=== PATIENT | male | born 1950 | race Caucasian/White ===

== ENCOUNTER 2018-04-06 12:04 | Inpatient (IN) | payer OTHER, MEDICARE ==
[~2018-04-06] VITALS: Ht 172.7 cm; Wt 112.6 kg
--- NOTE | ~2018-04-06 | EKG ---
[employer], [place] ELECTROCARDIOGRAM REPORT NAME: DARIELA KUHN UNIT #: [id number] ROOM: 404 DOCTOR: ALBINO DRAFT REPORT BIRTHDATE: [birth year] [facility] Test Date: 2018-04-06 Test Time: 12:30:41 Pat Name: DARIELA KUHN Department: Room: 404 Gender: M [employer] Processor: IRMA RANGELB: 1950 Requested By: KAYLEIGH COOLEY Order Number: [id number] Reading MD: Michael Haddad MD Measurements Intervals [place] Rate: 98 P: 38 TX: 170 QRS: 22 QRSD: 92 T: -1 QT: 355 QTc: 454 Interpretive Statements Sinus rhythm Consider left atrial enlargement Inferior SC, old Borderline T abnormalities, inferior leads Electronically Signed On 04-06-2018 18:45:44 PDT by Michael Haddad MD CM:EKGRPT:ELECTROCARDIOGRAM REPORT 1230 [id number] KAYLEIGH ESCOTO DRAFT REPORT KAYLEIGH COOLEY DO
--- NOTE | ~2018-04-06 | O ---
[place], [place] OPERATIVE NOTE NAME: DARIELA KUHN UNIT #: [id number] ROOM: 404 DOCTOR: JAQUAN TABARES MD BIRTHDATE: [birth year] DOS: 04/07/2018 PREOPERATIVE DIAGNOSIS: Acute cholecystitis. POSTOPERATIVE DIAGNOSIS: Acute cholecystitis. PROCEDURE: Laparoscopic partial cholecystectomy. SURGEON: Jaquan Tabares MD LOGISTICS SYSTEM ENGINEER: JULIETTE. ANESTHESIA: General with endotracheal intubation. INDICATIONS: This is a 67-year-old gentleman who was admitted with right upper quadrant and epigastric abdominal pain for approximately a week. Further workup showed acute cholecystitis as the cause of the pain, it was decided to take the patient to the operating room for the above-mentioned procedure. The procedure and its complications were explained to the patient in detail preoperatively. Complications that were discussed included but were not limited to bleeding, infection, hematoma/seroma/abscess formation, biloma formation, inadvertent injury to the common bile duct, incisional hernia formation and prolonged postoperative pain. He agreed to proceed. DESCRIPTION OF PROCEDURE: After identifying the patient, the patient was brought to the operating suite and laid in the supine position. After induction of general anesthesia, timeout procedure was called and the parts were then painted and draped in the usual sterile fashion. An incision was made below the umbilicus in a transverse fashion. The skin and the subcutaneous tissue were incised in the line of the incision. The fascia was incised and 2 stay sutures with 0 Vicryl were taken on either side and the peritoneum was opened. A 12 mm Juliette port was introduced into the peritoneal cavity and a pneumoperitoneum was created. Under direct vision, an epigastric incision of 10 mm and two 5 mm incisions were made in the right upper quadrant and appropriate size ports were introduced. The gallbladder was found to be acutely inflamed and edematous as well as pretty distended and therefore in order to better grasp the gallbladder, approximately 30 mL of clear fluid was aspirated from the gallbladder. The gallbladder was then retracted superiorly and laterally. Multiple adhesions, which were chronic and acute, were taken down with the help of blunt dissection. Despite multiple attempts, the base of the gallbladder and the cystic duct and the cystic artery itself were not visualized appropriately and therefore the top-down technique was utilized by incising on the peritoneum overlying the gallbladder and taking the gallbladder down from the fundus of the gallbladder down to its base. Because of the extreme edema and inflammation, the gallbladder itself was difficult to remove from the bed of the gallbladder and the gallbladder itself was entered inadvertently in order to minimize bleeding complications associated with removing the gallbladder from the gallbladder bed in the inflamed situation, the posterior wall of the gallbladder was left in situ and the anterior wall of the gallbladder was dissected away with the help of blunt and sharp dissection and by using electrocautery away from the [place], [place] OPERATIVE NOTE NAME: DARIELA KUHN UNIT #: [id number] ROOM: [facility] DOCTOR: JAQUAN TABARES MD BIRTHDATE: [birth year] gallbladder bed. At approximately the fundus area of the gallbladder, the gallbladder wall was excised and a stone that was encountered was also removed by inserting the gallbladder, excised wall and the stone into an EndoCatch bag and removing from the peritoneal cavity and sending the specimen for histopathological diagnosis. Hemostasis was achieved in the posterior wall of the gallbladder and the exposed gallbladder wall and saline was used for irrigation. For additional hemostasis, a Surgicel patch was placed and through one of the lateral incisions, a 10-Yoruba round Dale-Bosch drain was inserted and was placed in the gallbladder bed and in the region of the lateral abdominal wall and the right lobe of the liver. The port was then removed and the drain was then fixed to the overlying skin with the help of 3-0 nylon. The epigastric and the other right-sided abdominal wall port were removed under direct vision and there was no bleeding seen. The umbilical port was also removed and the 2 stay sutures were tied together and an additional stitch was taken with the help of 0 Vicryl in order to close the fascia. Local anesthesia was infiltrated in all the four incisions and the three incisions were then approximated with the help of 4-0 Vicryl in a subcuticular running fashion. Dressing was placed. The patient tolerated the procedure well and was extubated uneventfully and brought back to the recovery room in a stable fashion. There were no complications. Dr. Jaquan Tabares, the attending surgeon, was present throughout the operating case. Jaquan Tabares MD CM:OPRECORD:OPERATIVE NOTE 1327 [id number] JAQUAN TABARES MD 04/07/18 1433 interface
[2018-04-06 12:04] VITALS: BP 156/88
[2018-04-06 12:38] LABS: HEMATOCRIT 44.9 % (42.0-52.0); HEMOGLOBIN 15.7 g/dl (14.0-18.0); MEAN CELL VOLUME 87.9 fl (80.0-94.0); MEAN CORPUSCULAR HGB 30.7 pg (27.0-31.0); PLATELET COUNT AUTOMATED 202 10*3/uL (130-400); RED BLOOD COUNT 5.11 10*6/uL (4.50-5.90); RED CELL DISTRI WIDTH 12.2 % (0-14.5); WHITE BLOOD COUNT 16.9 10*3/uL (4.8-10.8)
[2018-04-06 12:40] LABS: BILIRUBIN 1+ (NEGATIVE); BLOOD NEGATIVE (NEGATIVE); CLARITY SL CLOUDY (CLEAR); COLOR YELLOW (YELLOW); GLUCOSE TRACE (NEGATIVE); KETONE TRACE (NEGATIVE); LEUKO ESTERASE NEGATIVE (NEGATIVE); NITRITE NEGATIVE (NEGATIVE); SPECIFIC GRAVITY 1.025 (1.005-1.030)
[2018-04-06 12:50] LABS: ACT PARTIAL THROMBO TIME 27.2 SECONDS (20.8-31.5); INTERNATIONAL NORM RATIO 1.1 (2.0-3.5)
[2018-04-06 12:53] LABS: ALBUMIN 3.4 gm/dl (3.1-4.5); ALKALINE PHOSPHATASE 139 U/L (45-117); BUN 10 mg/dl (7-24); CHLORIDE 101 mmol/L (98-107); CREATININE 0.97 mg/dL (0.70-1.30); LIPASE 62 U/L (73-393); POTASSIUM 2.8 mmol/L (3.5-5.1); SGOT/AST 20 IU/L (3-35); SGPT/ALT 29 U/L (12-78); SODIUM 138 mmol/L (136-145); TOTAL PROTEIN 7.7 gm/dL (6.4-8.2)
[2018-04-06 12:55] LABS: BACTERIA 2+; MUCOUS 3+
[2018-04-06 12:55] LABS: PLATELET SUFFICIENCY NORMAL (NORMAL); TOTAL CELLS COUNTED 100 #CELLS
[2018-04-06 12:57] LABS: TROPONIN I < 0.015 ng/ml (<0.045)
[2018-04-06] MEDS ORDERED: MICONAZOLE 745 GM T (13:05)
[2018-04-06] MEDS ORDERED: NIFEDIPINE90 MG PO (13:05)
[2018-04-06] MEDS ORDERED: CYCLOBENZAPRINE10 MG PO (13:06)
[2018-04-06] MEDS ORDERED: TERBINAFINE15 GM TP (13:06)
[2018-04-06] MEDS ORDERED: COMPETE1 EACH PO (13:07)
[2018-04-06] MEDS ORDERED: COZAAR50 M1 PO (13:07)
[2018-04-06] MEDS ORDERED: NEURONTIN300 MG PO (13:07)
[2018-04-06] MEDS ORDERED: SERTRALINE HYD100 MG PO (13:08)
[2018-04-06] MEDS ORDERED: FISH OIL 1,0001 EAC2 PO (13:10)
[2018-04-06 13:49] VITALS: BP 162/86
[2018-04-06 14:56] VITALS: BP 154/90
[2018-04-06 16:00] VITALS: BP 150/82
[2018-04-06] MEDS ORDERED: ASPIR 8181 MG PO (16:25)
[2018-04-06] MEDS ORDERED: VITAMIN D31000 UNI1 PO (16:26)
[2018-04-06] MEDS ORDERED: IBUPROFEN400 MG PO (16:27)
[2018-04-06 20:00] VITALS: BP 158/66
[2018-04-07] VITALS (11 sets, daily range): BP systolic 134–169; BP diastolic 71–90
[2018-04-07 06:42] LABS: HEMATOCRIT 40.4 % (42.0-52.0); HEMOGLOBIN 13.9 g/dl (14.0-18.0); MEAN CELL VOLUME 89.6 fl (80.0-94.0); MEAN CORPUSCULAR HGB 30.8 pg (27.0-31.0); MEAN CORPUSCULAR HGB CONC 34.4 g/dl (33.0-37.0); MEAN PLATELET VOLUME 10.3 fl (9.6-12.3); PLATELET COUNT AUTOMATED 168 10*3/uL (130-400); RED BLOOD COUNT 4.51 10*6/uL (4.50-5.90); RED CELL DISTRI WIDTH 12.4 % (0-14.5); WHITE BLOOD COUNT 14.2 10*3/uL (4.8-10.8)
[2018-04-07 07:05] LABS: ALBUMIN 2.7 gm/dl (3.1-4.5); ALKALINE PHOSPHATASE 116 U/L (45-117); BUN 10 mg/dl (7-24); CHLORIDE 107 mmol/L (98-107); CHOLESTEROL 138 mg/dL (<200); CREATININE 0.81 mg/dL (0.70-1.30); FREE T4 1.23 ng/dl (0.76-1.46); HDL CHOLESTEROL 55 mg/dl (40-60); LDL CHOLESTEROL 72 mg/dL (9-159); PHOSPHOROUS 2.6 mg/dL (2.5-4.9); SGOT/AST 19 IU/L (3-35); SGPT/ALT 29 U/L (12-78); SODIUM 143 mmol/L (136-145); TOTAL PROTEIN 6.6 gm/dL (6.4-8.2); TRIGLYCERIDES 54 mg/dl (<150); VLDL CHOLESTEROL 11 mg/dL (6-40)
[2018-04-07 07:09] LABS: THYROID STIM HORMONE (HS) 0.464 uIU/ml (0.358-4.75)
[2018-04-07 07:31] LABS: PLATELET SUFFICIENCY NORMAL (NORMAL); TOTAL CELLS COUNTED 100 #CELLS
[2018-04-07 08:02] LABS: VITAMIN D, 25-HYDROXY 25.9 ng/mL (30-100)
[2018-04-08] VITALS: BP 163/79
[2018-04-08 06:15] LABS: HEMATOCRIT 43.5 % (42.0-52.0); HEMOGLOBIN 14.6 g/dl (14.0-18.0); MEAN CELL VOLUME 90.8 fl (80.0-94.0); MEAN CORPUSCULAR HGB 30.5 pg (27.0-31.0); MEAN CORPUSCULAR HGB CONC 33.6 g/dl (33.0-37.0); MEAN PLATELET VOLUME 10.4 fl (9.6-12.3); PLATELET COUNT AUTOMATED 207 10*3/uL (130-400); RED BLOOD COUNT 4.79 10*6/uL (4.50-5.90); RED CELL DISTRI WIDTH 12.4 % (0-14.5); WHITE BLOOD COUNT 23.1 10*3/uL (4.8-10.8)
[2018-04-08 06:30] LABS: ALBUMIN 2.5 gm/dl (3.1-4.5); BUN 9 mg/dl (7-24); CHLORIDE 107 mmol/L (98-107); CREATININE 0.79 mg/dL (0.70-1.30); LIPASE 53 U/L (73-393); POTASSIUM 3.2 mmol/L (3.5-5.1); SGOT/AST 20 IU/L (3-35); SGPT/ALT 29 U/L (12-78); SODIUM 142 mmol/L (136-145); TOTAL PROTEIN 6.6 gm/dL (6.4-8.2)
[2018-04-08 06:31] LABS: ALKALINE PHOSPHATASE 111 U/L (45-117)
[2018-04-08 07:23] LABS: BASOPHILS 1 % (0-1); PLATELET SUFFICIENCY NORMAL (NORMAL); TOTAL CELLS COUNTED 100 #CELLS
[2018-04-08 08:00] VITALS: BP 130/68
[2018-04-08 08:04] VITALS: BP 167/86
[2018-04-08 12:00] VITALS: BP 145/69
[2018-04-08 20:00] VITALS: BP 159/66
[2018-04-09 01:20] VITALS: BP 134/65
[2018-04-09 06:48] LABS: HEMATOCRIT 41.4 % (42.0-52.0); HEMOGLOBIN 13.8 g/dl (14.0-18.0); MEAN CELL VOLUME 91.8 fl (80.0-94.0); MEAN CORPUSCULAR HGB 30.6 pg (27.0-31.0); MEAN CORPUSCULAR HGB CONC 33.3 g/dl (33.0-37.0); MEAN PLATELET VOLUME 10.8 fl (9.6-12.3); PLATELET COUNT AUTOMATED 266 10*3/uL (130-400); RED BLOOD COUNT 4.51 10*6/uL (4.50-5.90); RED CELL DISTRI WIDTH 12.5 % (0-14.5); WHITE BLOOD COUNT 23.2 10*3/uL (4.8-10.8)
[2018-04-09 07:14] LABS: BASOPHILS 1 % (0-1); PLATELET SUFFICIENCY NORMAL (NORMAL); TOTAL CELLS COUNTED 100 #CELLS
[2018-04-09 12:00] VITALS: BP 126/60
[2018-04-09 16:00] VITALS: BP 129/68
[2018-04-09 20:00] VITALS: BP 112/61
[2018-04-10] VITALS: BP 123/46
[2018-04-10 09:02] LABS: BASO # 0.1 10*3/uL (0.0-0.1); BASO % 0.3 % (0.0-1.0); EOS # 1.4 10*3/uL (0.0-0.4); EOS % 8.9 % (1.0-4.0); HEMATOCRIT 38.5 % (42.0-52.0); HEMOGLOBIN 13.1 g/dl (14.0-18.0); LYMPH # 1.4 10*3/uL (1.3-4.4); LYMPH % 8.8 % (27.0-41.0); MEAN CELL VOLUME 90.6 fl (80.0-94.0); MEAN CORPUSCULAR HGB 30.8 pg (27.0-31.0); MEAN PLATELET VOLUME 10.4 fl (9.6-12.3); MONO # 1.3 10*3/uL (0.1-1.0); MONO % 8.2 % (3.0-9.0); NEUT # 11.6 10*3/uL (2.3-7.9); NEUT % 73.2 % (47.0-73.0); PLATELET COUNT AUTOMATED 274 10*3/uL (130-400); RED BLOOD COUNT 4.25 10*6/uL (4.50-5.90); RED CELL DISTRI WIDTH 12.5 % (0-14.5); WHITE BLOOD COUNT 15.9 10*3/uL (4.8-10.8)
[2018-04-10 09:28] LABS: ALBUMIN 2.3 gm/dl (3.1-4.5); ALKALINE PHOSPHATASE 113 U/L (45-117); BUN 14 mg/dl (7-24); CHLORIDE 101 mmol/L (98-107); SGOT/AST 29 IU/L (3-35); SGPT/ALT 35 U/L (12-78); SODIUM 141 mmol/L (136-145); TOTAL PROTEIN 6.8 gm/dL (6.4-8.2)
[2018-04-10 12:00] VITALS: BP 133/64
[2018-04-10] MEDS ORDERED: NORCO 5-325 TA1 EACH PO (14:39)
[2018-04-10] MEDS ORDERED: FLAGYL500 MG PO (14:39)
[2018-04-10] MEDS ORDERED: CIPRO500 MG PO (14:39)
[2018-04-10] MEDS ORDERED: VICODIN 5-3001 EACH PO (15:09)
[2018-04-10 16:00] VITALS: BP 146/67
== END 2018-04-10 17:30 | disposition home health service (06) | DRG 854 ==
LOC: ED 12:04 → EDHOLD 14:14 → 4E 14:14
PROVIDERS: Emergency Medicine; Registered Nurse; Surgery
PROC: 0FT44ZZ Resection of Gallbladder, Percutaneous Endoscopic Approach (ICD-10-PCS; principal; 2018-04-07)
PROC: 5A09357 Assistance with Respiratory Ventilation, Less than 24 Consecutive Hours, Continuous Positive Airway Pressure (ICD-10-PCS; 2018-04-09)
DX: A41.9 Sepsis, unspecified organism (principal); K80.00 Calculus of gallbladder with acute cholecystitis without obstruction; N40.0 Benign prostatic hyperplasia without lower urinary tract symptoms; I10 Essential (primary) hypertension; E87.6 Hypokalemia; R73.9 Hyperglycemia, unspecified; R74.8 Abnormal levels of other serum enzymes; E80.6 Other disorders of bilirubin metabolism; I25.10 Atherosclerotic heart disease of native coronary artery without angina pectoris; N28.1 Cyst of kidney, acquired; E66.01 Morbid (severe) obesity due to excess calories; M48.00 Spinal stenosis, site unspecified; Z79.899 Other long term (current) drug therapy; Z79.82 Long term (current) use of aspirin; I25.2 Old myocardial infarction; Z80.1 Family history of malignant neoplasm of trachea, bronchus and lung; Z80.8 Family history of malignant neoplasm of other organs or systems; Z68.37 Body mass index [BMI] 37.0-37.9, adult; R09.02 Hypoxemia

== ENCOUNTER 2018-08-29 16:56 | Emergency (ER) | payer OTHER ==
[~2018-08-29] VITALS: Ht 172.7 cm; Wt 113.4 kg
--- NOTE | ~2018-08-29 | EKG ---
[place], [place] ELECTROCARDIOGRAM REPORT NAME: DARIELA KUHN UNIT #: [id number] ROOM: DOCTOR: EPIPHANY DRAFT REPORT BIRTHDATE: [birth year] [facility] Test Date: 2018-08-29 Test Time: 17:25:47 Pat Name: DARIELA KUHN Department: Room: Gender: Emr Implementation Specialist: : 1950 Requested By: FRENCH MONTESINOS Order Number: [id number] Reading MD: Measurements Intervals [place] Rate: 86 P: 37 [place]: 169 QRS: 27 QRSD: 99 T: 11 QT: 385 QTc: 461 Interpretive Statements Sinus rhythm Inferior infarct, old Compared to ECG 04/06/2018 12:30:41 T-wave abnormality no longer present Myocardial infarct finding still present CM:EKGRPT:ELECTROCARDIOGRAM REPORT 1725 1440 FRENCH POSADA DRAFT REPORT FRENCH MONTESINOS MD
[~2018-08-29 16:56] MED LIST: ASPIR 8181 MG PO; CIPRO500 MG PO; COMPETE1 EACH PO; COZAAR50 M1 PO; CYCLOBENZAPRINE10 MG PO; FISH OIL 1,0001 EAC2 PO; FLAGYL500 MG PO; IBUPROFEN400 MG PO; MICONAZOLE 745 GM T; NEURONTIN300 MG PO; NIFEDIPINE90 MG PO; NORCO 5-325 TA1 EACH PO; SERTRALINE HYD100 MG PO; TERBINAFINE15 GM TP; VICODIN 5-3001 EACH PO; VITAMIN D31000 UNI1 PO
[2018-08-29 17:18] LABS: BASO # 0.1 10*3/uL (0.0-0.1); BASO % 0.9 % (0.0-1.0); EOS # 0.3 10*3/uL (0.0-0.4); EOS % 3.3 % (1.0-4.0); HEMATOCRIT 45.2 % (42.0-52.0); HEMOGLOBIN 15.7 g/dl (14.0-18.0); LYMPH # 2.1 10*3/uL (1.3-4.4); LYMPH % 22.7 % (27.0-41.0); MEAN CELL VOLUME 89.9 fl (80.0-94.0); MEAN CORPUSCULAR HGB 31.2 pg (27.0-31.0); MEAN CORPUSCULAR HGB CONC 34.7 g/dl (33.0-37.0); MEAN PLATELET VOLUME 10.4 fl (9.6-12.3); MONO % 10.8 % (3.0-9.0); NEUT # 5.8 10*3/uL (2.3-7.9); NEUT % 62.1 % (47.0-73.0); PLATELET COUNT AUTOMATED 251 10*3/uL (130-400); RED BLOOD COUNT 5.03 10*6/uL (4.50-5.90); RED CELL DISTRI WIDTH 12.9 % (0-14.5); WHITE BLOOD COUNT 9.3 10*3/uL (4.8-10.8)
[2018-08-29 17:32] LABS: ACT PARTIAL THROMBO TIME 26.3 SECONDS (20.8-31.5)
[2018-08-29 17:48] LABS: ALBUMIN 3.4 gm/dl (3.1-4.5); ALKALINE PHOSPHATASE 183 U/L (45-117); BUN 16 mg/dl (7-24); CHLORIDE 108 mmol/L (98-107); CREATININE 1.29 mg/dL (0.70-1.30); POTASSIUM 3.4 mmol/L (3.5-5.1); SGOT/AST 22 IU/L (3-35); SGPT/ALT 32 U/L (12-78); SODIUM 142 mmol/L (136-145); TOTAL PROTEIN 7.4 gm/dL (6.4-8.2)
[2018-08-29 17:54] LABS: TROPONIN I < 0.015 ng/ml (<0.045)
[2018-08-29] MEDS ORDERED: Meclizine25 MG PO (18:21)
== END 2018-08-29 18:29 | disposition home or self-care (01) ==
LOC: ED 16:56
PROVIDERS: Emergency Medicine
DX: R42 Dizziness and giddiness (principal); G89.29 Other chronic pain; M54.2 Cervicalgia; I25.10 Atherosclerotic heart disease of native coronary artery without angina pectoris; I10 Essential (primary) hypertension; E66.01 Morbid (severe) obesity due to excess calories; I25.2 Old myocardial infarction; Z79.2 Long term (current) use of antibiotics; Z79.899 Other long term (current) drug therapy; Z79.82 Long term (current) use of aspirin

== ENCOUNTER → 2021-05-06 | Outpatient (CLI) | payer OTHER ==
[~2021-05-06] MED LIST changes: +Meclizine25 MG PO
== END | disposition home or self-care (01) ==
LOC: MAMMO 12:54
PROVIDERS: ATTEND Internal Medicine
DX: N64.4 Mastodynia (principal)

== ENCOUNTER 2023-02-11 11:19 | Emergency (ER) | payer OTHER ==
[~2023-02-11] VITALS: Ht 180.3 cm; Wt 108.9 kg
[2023-02-11] MEDS ORDERED: ATORVASTATIN CA40 M1 PO (12:03)
[2023-02-11] MEDS ORDERED: CLOPIDOGREL75 MG PO (12:05)
[2023-02-11] MEDS ORDERED: LUBRICANT EYE1 EACH OP (12:05)
[2023-02-11] MEDS ORDERED: ARTHRITIS PAIN150 GM T (12:14)
[2023-02-11] MEDS ORDERED: DOCUSATE SODIU1 EAC1 GT (12:17)
[2023-02-11] MEDS ORDERED: CYMBALTA60 MG PO (12:17)
[2023-02-11] MEDS ORDERED: WIXELA 250-501 EACH INH (12:19)
[2023-02-11] MEDS ORDERED: PREGABALIN75 MG GT (12:20)
[2023-02-11] MEDS ORDERED: NORMODYNE,TRAN200 MG PO (12:20)
[2023-02-11] MEDS ORDERED: SILODOSIN8 MG GT (12:21)
[2023-02-11] MEDS ORDERED: ALDACTONE50 M1 GT (12:22)
[2023-02-11] MEDS ORDERED: DIOVAN160 M2 GT (12:23)
[2023-02-11] MEDS ORDERED: BOUDREAUXS113 GM T (12:24)
[2023-02-11] MEDS ORDERED: NATURE'S BLEND M3 MG GT (12:25)
[2023-02-11 14:23] LABS: BASO # 0.1 10*3/uL (0.0-0.1); BASO % 0.7 % (0.0-1.0); EOS # 0.6 10*3/uL (0.0-0.4); EOS % 6.4 % (1.0-4.0); HEMATOCRIT 39.1 % (42.0-52.0); LYMPH # 1.4 10*3/uL (1.3-4.4); LYMPH % 14.1 % (27.0-41.0); MEAN CELL VOLUME 93.8 fl (80.0-94.0); MEAN CORPUSCULAR HGB 30.7 pg (27.0-31.0); MEAN CORPUSCULAR HGB CONC 32.7 g/dl (33.0-37.0); MEAN PLATELET VOLUME 9.6 fl (9.6-12.3); MONO # 1.1 10*3/uL (0.1-1.0); MONO % 10.6 % (3.0-9.0); NEUT # 6.8 10*3/uL (2.3-7.9); PLATELET COUNT AUTOMATED 233 10*3/uL (130-400); RED BLOOD COUNT 4.17 10*6/uL (4.50-5.90); RED CELL DISTRI WIDTH 12.6 % (0-14.5)
[2023-02-11 14:47] LABS: ALKALINE PHOSPHATASE 141 U/L (46-116); BUN 15 mg/dl (9-23); CHLORIDE 104 mmol/L (98-107); POTASSIUM 4.4 mmol/L (3.4-5.1); SGPT/ALT 26 U/L (10-49); TOTAL PROTEIN 6.4 gm/dL (6.0-8.0)
== END 2023-02-11 16:46 | disposition home or self-care (01) ==
LOC: ED 11:19
PROVIDERS: Internal Medicine
DX: I16.0 Hypertensive urgency (principal); F32.A Depression, unspecified; I10 Essential (primary) hypertension; E78.00 Pure hypercholesterolemia, unspecified; Z98.890 Other specified postprocedural states